=== PATIENT | male | born 1985 | race Caucasian/White ===

== ENCOUNTER 2019-06-18 13:20 | Emergency (ER) | payer BC ==
[~2019-06-18] VITALS: Ht 170.2 cm; Wt 77.1 kg
--- NOTE | 2019-06-18 13:41 | NUR ---
IVAN DOW AT BEDSIDE FOR MSE.
[2019-06-18] MEDS ORDERED: LORAZEPAM 1 MG TABLET ONE (13:57)
[2019-06-18] MEDS ORDERED: LORAZEPAM 0.5 MG TABLET PO ONE ×2 (14:00)
--- NOTE | 2019-06-18 14:38 | NUR ---
Patient discharged to home in stable conditon. Written and verbal after care instructions given. Patient verbalizes understanding of instructions.
== END 2019-06-18 14:39 | disposition home or self-care (01) ==
LOC: ER 13:20
DX: F41.0 Panic disorder [episodic paroxysmal anxiety] (principal)
CPT/HCPCS: 70450; A4663